=== PATIENT | female | born 1955 | race Caucasian/White ===

== ENCOUNTER 2018-12-22 15:16 | Emergency (ER) | payer SELFPAY ==
[2018-12-22 15:25] VITALS: BP 169/80; PULSE 89; RESP 16; TEMP 37.1; O2SAT 99
--- NOTE | 2018-12-22 15:26 | DI.RAD.S_ITS ---
PROCEDURE: XR SHOULDER LT MIN 2V INDICATIONS: anterior shoulder pain TECHNIQUE: 3 views of the shoulder were acquired. COMPARISON: None. FINDINGS: Bones: No acute fractures. There is abnormal widening of the acromioclavicular interval with mild cephalad displacement of the distal clavicle relative to the acromion. The coracoclavicular interval measures at the upper limits of normal. No suspicious bony lesions. Visualized ribs appear intact. Soft tissues: No suspicious soft tissue calcifications. IMPRESSION: 1. Left shoulder without acute osseous abnormalities. 2. Abnormal widening at the left acromioclavicular joint with preservation of the coracoclavicular interval is suspicious for low-grade acromioclavicular joint separation. Dictated by: Herb Philip M.D. on 12/22/2018 at 15:46 Approved by: Herb Philip M.D. on 12/22/2018 at 15:49
[2018-12-22 16:36] VITALS: BP 144/68; PULSE 74; RESP 14; O2SAT 100
--- NOTE | 2018-12-22 16:53 | ED.UPPEXIN ---
HPI - Extremity Injury (Upper) <COLIN Thompson - Last Filed: 12/22/18 23:36> General Chief Complaint: Extremity Injury, Upper Stated Complaint: L shoulder issues Time Seen by Provider: 12/22/18 16:13 Source: patient Mode of arrival: ambulatory Limitations: no limitations History of Present Illness HPI narrative: This is a 63 year female, nonsmoker, who presents to ED with left anterior shoulder pain with any movements. Patient reports she had fell yesterday mid afternoon after tripped and fell down 6 steps. She reports had hit her head but there was no loss of consciousness, neck pain, vision change, seizure, vomiting, tingling numbness or weakness to extremities. She is ambulatory. Right dominant hand. Patient arrived with her own shoulder immobilizer. Review of Systems <COLIN Thompson - Last Filed: 12/22/18 23:36> Review of Systems Narrative: General: Denies fever, chills, fatigue, malaise, sweats. HEENT: Denies sinus pain, ear pain, sore throat, difficulty swallowing, dizziness. Respiratory: Denies dyspnea, cough, wheezing, hemoptysis, sputum. Cardiovascular: Denies chest pain, palpitations, orthopnea, edema. Gastrointestinal: Denies nausea, vomiting, abdominal pain, diarrhea, constipation, melena. : Denies dysuria, frequency, incontinence, hematuria, urinary retention. Musculoskeletal: See HPI Skin: Denies rash, skin lesions, or other. Neurologic: Denies weakness, headache, numbness, change in speech, confusion, seizures, incoordination. Psychiatric: No concerning psychosocial issues. 12-point review of systems is negative except for those stated above. PFSH <COLIN Thompson - Last Filed: 12/22/18 23:36> Social History Smoking Status: Never smoker Social History Smoking Status: Never smoker Exam <COLIN Thompson - Last Filed: 12/22/18 23:36> Narrative Exam Narrative: General appearance: well developed, well nourished, in no acute distress. Head: normocephalic, atraumatic, non step-offs, no scalp lesions, non-tender. Eye: pupil equal, round. EOMI. Nose: nares patent. Oral: mucosa moist. Neck/Thyroid: neck supple, full range of motion, no step-offs, no visible masses. Skin: no suspicious rashes, lesions over visible areas. Warm and dry. Heart: no clubbing, no cyanosis, no edema. Lungs: Breathing even and unlabored. No stridor. No accessory muscles used. Chest: normal shape and expansion. Abdomen: non-obese, non-distended. Neurologic: alert and oriented. Cognitive exam, [employer] and PNS grossly intact on informal exam. Psych: good eye contact, normal affect. Initial Vital Signs Initial Vital Signs: Vital Signs Temperature 98.8 F 12/22/18 15:25 Pulse Rate 89 12/22/18 15:25 Respiratory Rate 16 12/22/18 15:25 Blood Pressure 169/80 H 12/22/18 15:25 Pulse Oximetry 99 12/22/18 15:25 Extrem Right upper extremity: normal to inspection Left upper extremity: shoulder/upper arm Details: inspection abnormal, tenderness Location: of the A-C joint (Anterior shoulder), axillary nerve sensory function normal and abnormal ROM Details: pain with active ROM, pain with passive ROM and with range as follows (Limited abduction, adduction, elevation); no swelling, elbow/forearm Details: normal to inspection and normal ROM; no tenderness and no swelling and hand Details: neurosensory exam normal and vascular exam Details: radial pulse present and normal capillary refill Right lower extremity: normal to inspection Left lower extremity: normal to inspection <Jnenifer Chung DO - Last Filed: 12/23/18 08:15> Initial Vital Signs Initial Vital Signs: Vital Signs Temperature 98.8 F 12/22/18 15:25 Pulse Rate 89 12/22/18 15:25 Respiratory Rate 16 12/22/18 15:25 Blood Pressure 169/80 H 12/22/18 15:25 Pulse Oximetry 99 12/22/18 15:25 Scores <COLIN Thompson - Last Filed: 12/22/18 23:36> GCS [place] coma scale eye opening: Spontaneous [place] coma scale verbal response: Orientated [place] coma scale motor response: Obey commands [place] coma scale total score: 15 Nexus Score for C-Spine Focal Neurologic deficit present: No Midline spinal tenderness present: No Altered level of conciousness present: No Intoxication present: No Distracting Injury Present: Yes Nexus Criteria for C-spine: 1 Course <Gil Dunlap [employer] MACHINE OPERATOR - Last Filed: 12/22/18 23:36> Orders Ordered: ED Orders 12/22/18 15:26 XR shoulder LT min 2V Stat Vital Signs Vital signs: Vital Signs - 8 hr 12/22/18 15:25 12/22/18 16:36 Temperature 98.8 F Pulse Rate 89 74 Respiratory Rate 16 14 Blood Pressure 169/80 H Blood Pressure [Right Arm] 144/68 H Pulse Oximetry 99 100 <Jennifer Chung DO - Last Filed: 12/23/18 08:15> Orders Ordered: ED Orders 12/22/18 15:26 XR shoulder LT min 2V Stat Vital Signs Vital signs: Vital Signs - 8 hr 12/22/18 15:25 12/22/18 16:36 Temperature 98.8 F Pulse Rate 89 74 Respiratory Rate 16 14 Blood Pressure 169/80 H Blood Pressure [Right Arm] 144/68 H Pulse Oximetry 99 100 MDM - Extremity Injury (Upper) <Gil DunlapCIROP - Last Filed: 12/22/18 23:36> Differential Diagnosis Differential diagnosis: Likely dislocation of shoulder and other (shoulder separation, shoulder contusion) Medical Records Attestation: I reviewed the patient's medical records. Imaging Data XR-Shoulder LT: Radiologist's impression: [place] [address] XRay Report Signed Patient: Wilbert Marinelli#: [id number] : [id number] Age/Sex: 63 / FDate of Service: 12/22/18 Loc: ED Accession Number: [id number] Procedure: XR shoulder LT min 2V Ordering Provider: Jennifer Chung D.O. PROCEDURE: XR SHOULDER LT MIN 2V INDICATIONS: anterior shoulder pain TECHNIQUE: 3 views of the shoulder were acquired. COMPARISON: None. FINDINGS: Bones: No acute fractures. There is abnormal widening of the acromioclavicular interval with mild cephalad displacement of the distal clavicle relative to the acromion. The coracoclavicular interval measures at the upper limits of normal. No suspicious bony lesions. Visualized ribs appear intact. Soft tissues: No suspicious soft tissue calcifications. IMPRESSION: 1. Left shoulder without acute osseous abnormalities. 2. Abnormal widening at the left acromioclavicular joint with preservation of the coracoclavicular interval is suspicious for low-grade acromioclavicular joint separation. Dictated by: Herb Philip M.D. on 12/22/2018 at 15:46 Approved by: Herb Philip M.D. on 12/22/2018 at 15:49 [facility] Narrative Medical decision making narrative: The patient reports she tripped and fell yesterday afternoon off 6 steps down on the stairs with s/p FOOSH. She reports had hit her head but there was no loss of consciousness, vision change, seizure activity, weakness to ext upper extremities, headache, nausea vomiting or mid cervical tenderness. Patient reports only injury she sustained is to left shoulder and her pain is limited to anterior shoulder with any movements. Patient has not taken any vpiq-vzk-lszibim medications for this pain but she takes daily to moderate for anti-inflammatory purposes. Due to patient's physical exam with no neurological deficit or complain of headache/neck pain, CT scan of these areas and not done at this time. Low grade abnormal widening at the left AC joint in left shoulder without acute bony abnormalties. Patient advised to use RICE therapy and continue to take to Terri gif it helps with inflammatory process and as needed [id number]-[id number] Tylenol or Motrin. Phone number to [facility] health resources has been provided along [facility] orthopedic office. Findings were shared with the patient and patient agrees with treatment plan and no further questions were expressed at this time. Return precautions were informed. Patient advised to exercise her left shoulder a few times a day even when she is wearing a sling. Discharge Plan Departure Patient Disposition: Home Clinical Impression: Shoulder separation Discharge Date/Time: 12/22/18 17:06 Instructions: DI for AC Joint Separation Activity Restrictions/Additional Instructions: You have been diagnosed with [left AC joint low grade separation according to x-ray test today from a fall.]. What to do: *Take your medications as directed. You can take [id number] Tylenol and/or Motrin as needed for moderate to severe pain. You can continue to take your tumeric if you think this helps with the inflammation. Please use rest, sling, ice pack for 1st 2-3 days. However, 2 to 3 times a day removed sling and do [id number]-[id number] exercises as much she can tolerate. *Follow up with your primary care provider in 2-3 days, call for an appointment. Let them know you were seen in the ED and that we asked you to be seen in follow up. I have shobha Rodriguez orthopedist with contact information. *Return to ED if you have any new, worsening, or concerning symptoms, such as [increasing pain, tingling numbness, weakness to affected hand, fever, chest pain, breathing difficulty, any acute concerns]. Referrals: [facility] [Outside] [facility] [Outside]
== END 2018-12-22 17:06 | disposition home or self-care (01) ==
PROVIDERS: Emergency Provider Nurse Practitioner Family
DX: S43.085A Other dislocation of left shoulder joint, initial encounter (principal); W10.8XXA Fall (on) (from) other stairs and steps, initial encounter
CPT/HCPCS: 73030; 99282; 99283